=== PATIENT | male | born 2005 | race African-American/Black ===

== ENCOUNTER 2023-08-24 13:34 | Inpatient (IN) | payer OTHER ==
[~2023-08-24] VITALS: Ht 172.7 cm; Wt 70.3 kg
[2023-08-24] MEDS ORDERED: ACETAMINOPHEN 325MG TABLET PO ONE (14:30)
[2023-08-24] MEDS ORDERED: ONDANSETRON 4MG ODT PO ONE (14:30)
[2023-08-24 15:13] LABS: CHLORIDE 105 mEq/L (98-107); POTASSIUM 4.3 mEq/L (3.5-5.1); SODIUM 140 mEq/L (136-145)
[2023-08-24 15:14] LABS: CALCIUM 9.8 mg/dL (8.7-10.4); CARBON DIOXIDE 28 mEq/L (21-32)
[2023-08-24 15:19] LABS: GLUCOSE 104 mg/dL (70-105); UREA NITROGEN BLOOD 9 mg/dL (9-23)
[2023-08-24 15:21] LABS: ALANINE AMINOTRANSFERASE 21 IU/L (10-49); ASPARTATE AMINOTRANSFERASE 22 IU/L (<34); BILIRUBIN TOTAL 0.9 mg/dL (0.1-1.0); PROTEIN TOTAL 8.5 g/dL (6.0-8.3)
[2023-08-24 15:23] LABS: HEMATOCRIT. 45.9 % (42.0-52.0); HEMOGLOBIN. 15.2 g/dL (14.0-18.0); MEAN CORPUSCULAR HEMOGLOBIN 26.7 pg (28.0-32.0); MEAN PLATELET VOLUME 8.9 fl (7.4-10.4); PLATELET 137 x1000/uL (130-400); RED BLOOD CELL COUNT 5.67 mill/uL (4.7-6.1); WHITE BLOOD COUNT 12.8 x1000/uL (4.5-11.0)
[2023-08-24 15:24] LABS: DIFFERENTIAL COMMENT 1
[2023-08-24] MEDS ORDERED: ONDANSETRON HCL 4MG/2ML INJ IV ONE (16:00)
[2023-08-24 16:26] LABS: PLATELET ESTIMATE NORMAL
[2023-08-24] MEDS ORDERED: SKIN ADHESIVE 0.7 GM EA TOP ONE ×2 (16:32→18:04)
[2023-08-24] MEDS ORDERED: BUPIVACAINE HCL/PF 0.5% (5MG/ML) 10ML ONE (16:32)
[2023-08-24] MEDS ORDERED: MORPHINE SULFATE 4 MG/ML INJ (FOR IV/IM USE) IV PRN (17:00)
[2023-08-24] MEDS ORDERED: HYDROCODONE/ACETAMINOPHEN 5/325MG TABLET PO PRN (17:00)
[2023-08-24] MEDS ORDERED: MORPHINE SULFATE 2 MG/ML CPJ (NOT FOR IM USE) IV PRN (17:00)
[2023-08-24] MEDS ORDERED: ONDANSETRON HCL 4MG/2ML INJ IV PRN ×2 (17:00→18:15)
[2023-08-24] MEDS ORDERED: DEXAMETHASONE 4MG/ML 1ML VIAL ONE (17:21)
[2023-08-24] MEDS ORDERED: ONDANSETRON HCL 4MG/2ML INJ ONE (17:21)
[2023-08-24] MEDS ORDERED: PROPOFOL 200MG/20ML VIAL IV ONE ×2 (17:22→17:41)
[2023-08-24] MEDS ORDERED: FENTANYL CITRATE/PF 50MCG/ML 2ML VIAL ONE (17:22)
[2023-08-24] MEDS ORDERED: LIDOCAINE HCL 1% 10 MG/ML 10ML VIAL ONE (17:22)
[2023-08-24] MEDS ORDERED: MIDAZOLAM HCL 2 MG/2 ML VIAL ONE (17:22)
[2023-08-24] MEDS ORDERED: ROCURONIUM BROMIDE 10MG/ML VIAL 5ML IV ONE ×2 (17:22→17:41)
[2023-08-24] MEDS ORDERED: SUGAMMADEX SODIUM 200 MG/2 ML VIAL IV NR (17:46)
[2023-08-24] MEDS ORDERED: GLYCOPYRROLATE 0.2 MG/ML 2ML VIAL ONE (17:54)
[2023-08-24] MEDS ORDERED: NEOSTIGMINE METHYLSULFATE 1MG/ML 10 ML VIAL ONE (17:54)
[2023-08-24] MEDS ORDERED: FENTANYL CITRATE/PF 50MCG/ML 2ML VIAL IV PRN (18:15)
[2023-08-24] MEDS ORDERED: NALOXONE HCL 1MG/ML 2ML VIAL ONE (18:19)
[2023-08-24] MEDS: HYDROMORPHONE HCL/PF 2MG/ML CPJ IV PRN (19:01)
[2023-08-24 22:30] VITALS: BP 105/57; PULSE 83; RESP 18; TEMP 97.7
[2023-08-24] MEDS: PIPERACILLIN/TAZO 3.375G/50ML 50 ML IV SCH (22:42)
[2023-08-24] MEDS: SODIUM CHLORIDE 0.9% INJ 3ML FLUSH IVF SCH (22:43)
[2023-08-25] VITALS: BP 105/57; PULSE 83; RESP 18; TEMP 97.7
[2023-08-25] MEDS: DEXT 5%/0.45% NACL KCL 20MEQ/L 1,000 ML IV SCH (03:44)
[2023-08-25 04:00] VITALS: BP 97/45; PULSE 74; RESP 18; TEMP 98.5
[2023-08-25] MEDS ORDERED: ACETAMINOPHEN 325MG TABLET PO PRN (04:00)
[2023-08-25] MEDS ORDERED: IPRATROPIUM/ALBUTEROL 0.5-3(2.5)MG/3ML NEB HHN PRN (04:00)
[2023-08-25] MEDS ORDERED: MAGNESIUM/ALUMINUM HYDROXIDE/SIMETHICONE 30ML UDC PO PRN (04:00)
[2023-08-25] MEDS ORDERED: ONDANSETRON HCL 4MG/2ML INJ IV PRN (04:00)
[2023-08-25 08:00] VITALS: BP 80/41; PULSE 63; RESP 19; TEMP 98.2
[2023-08-25] MEDS ORDERED: NALOXONE HCL 0.4MG/ML 1ML VIAL IV ONE (08:15)
[2023-08-25] MEDS: PANTOPRAZOLE SODIUM 40 MG/VIAL IV SCH (08:59)
[2023-08-25 10:29] LABS: CALCIUM 9.1 mg/dL (8.7-10.4); CHLORIDE 104 mEq/L (98-107); POTASSIUM 3.7 mEq/L (3.5-5.1); SODIUM 140 mEq/L (136-145)
[2023-08-25 10:30] LABS: CARBON DIOXIDE 26 mEq/L (21-32)
[2023-08-25 10:34] LABS: TROPONIN I HIGH SENSITIVITY 6 ng/L (3.0-53)
[2023-08-25 10:35] LABS: GLUCOSE 101 mg/dL (70-105); UREA NITROGEN BLOOD 10 mg/dL (9-23)
[2023-08-25 10:36] LABS: CREATINE KINASE 330 IU/L (46-171)
[2023-08-25] MEDS: HYDROCODONE/ACETAMINOPHEN 5/325MG TABLET PO PRN (11:09)
[2023-08-25 12:00] VITALS: BP 86/42; PULSE 71; RESP 19; TEMP 98.1
[2023-08-25 14:40] LABS: TROPONIN I HIGH SENSITIVITY 5 ng/L (3.0-53)
[2023-08-25 14:41] LABS: CREATINE KINASE 304 IU/L (46-171)
[2023-08-25 15:44] VITALS: BP 101/51; PULSE 82; TEMP 98.1; O2SAT 98
[2023-08-25 16:00] VITALS: BP_SYST 86; BP_SYST 98; BP_DIAS 42; BP_DIAS 51; PULSE 68; PULSE 71; RESP 19; TEMP 98; TEMP 98.1
[2023-08-25] MEDS ORDERED: NALOXONE HCL 0.4MG/ML VIAL IV PRN (17:45)
== END 2023-08-25 18:37 | disposition short-term general hospital (02) | DRG 399 ==
LOC: ER 13:34 → EDBEDREQ 16:30 → EDBEDREQTM 16:30 → 6EST 21:39
PROVIDERS: ADMIT Hospitalist; ATTEND Hospitalist
PROC: 0DTJ4ZZ Resection of Appendix, Percutaneous Endoscopic Approach (ICD-10-PCS; principal; 2023-08-24)
DX: K35.80 Unspecified acute appendicitis (principal)
CPT/HCPCS: 36415; 74176; 80048; 80053; 82550; 82962; 84484; 85025; 86850; 86900; 88304; 99285; C9113; J1100; J1170; J2250; J2310; J2405; J2543; J2704; J2710; J3010; J3490; J7030; J7120